=== PATIENT | male | born 2000 | race Hispanic/Latino ===

== ENCOUNTER 2019-03-01 16:19 | Emergency (ER) | payer SELFPAY | END 2019-03-01 17:28 | disposition home or self-care (01) | LOC: EDH 16:19 | DX: T67.5XXA Heat exhaustion, unspecified, initial encounter (principal); R07.89 Other chest pain; F90.9 Attention-deficit hyperactivity disorder, unspecified type; X30.XXXA Exposure to excessive natural heat, initial encounter; Y93.89 Activity, other specified; Y92.89 Other specified places as the place of occurrence of the external cause; Y99.8 Other external cause status | CPT/HCPCS: 71045; 93005 ==

== ENCOUNTER 2020-01-01 19:16 | Emergency (ER) | payer SELFPAY ==
[2020-01-01] MEDS ORDERED: SODIUM CHLORIDE 0.9% 1000ML 2,000 ML IV ONE (20:25)
[2020-01-01 20:28] LABS: BASOPHILS % (AUTO) 0.5 % (0.0-5.0); EOSINOPHILS % (AUTO) 0.6 % (0.0-8.0); HEMATOCRIT 42.6 % (42-54); LYMPHOCYTES % (AUTO) 28.8 % (21.0-51.0); MEAN CORPUSCULAR HGB CONC 35.7 g/dL (32.0-36.0); MEAN CORPUSCULAR VOLUME 86.8 fL (80-100); MONOCYTES % (AUTO) 7.5 % (3.0-13.0); NEUTROPHILS % (AUTO) 62.2 % (40.0-77.0); PLATELET COUNT (AUTO) 229 K/uL (130-400); RED BLOOD CELL COUNT(AUTO) 4.91 MIL/uL (4.50-6.20); RED CELL DISTRIBUTION WIDTH 12.3 % (11.0-15.5); WHITE BLOOD COUNT (AUTO) 9.3 K/uL (4.8-10.8)
[2020-01-01] MEDS ORDERED: INSULIN HUMULIN R 100 UNIT/ML 3ML ONE (20:42)
[2020-01-01 20:57] LABS: APPEARANCE,URINE Clear (CLEAR); BILIRUBIN,URINE Negative (NEGATIVE); COLOR,URINE Yellow (YELLOW); GLUCOSE, URINE (UA) >=1000 mg/dL (NEGATIVE); KETONES,URINE 15 mg/dL (NEGATIVE); LEUKOCYTE ESTERASE ,URINE Negative (NEGATIVE); NITRATE,URINE Negative (NEGATIVE); OCCULT BLOOD,URINE Negative (NEGATIVE); PH,URINE 5.5 (5.0-8.0); PROTEIN,URINE Negative (NEGATIVE); UROBILINOGEN,URINE 0.2 mg/dL (0.2-1.0)
[2020-01-01 21:00] LABS: HEMOGLOBIN A1C 8.4 % (4.0-6.0)
[2020-01-01 21:07] LABS: BACTERIA,URINE None Seen /HPF (None Seen); RBC,URINE 0-1 /HPF (0-1); WBC,URINE 0-1 /HPF (0-1)
[2020-01-01 21:08] LABS: MUCUS,URINE None Seen LPF (None Seen); SQUAMOUS EPITHELIAL CELL,UR 0-2 /HPF (0-2)
[2020-01-01 22:03] LABS: CREATININE 1.1 mg/dL (0.5-1.5); POTASSIUM 3.9 mmol/L (3.5-5.1)
[2020-01-01 22:08] LABS: ALBUMIN 3.5 g/dL (3.5-5.0); BILIRUBIN,TOTAL 0.4 mg/dL (0.2-1.0); TOTAL PROTEIN, SERUM 7.4 g/dL (6.0-8.3)
== END 2020-01-01 22:46 | disposition home or self-care (01) ==
LOC: EDH 19:16
DX: R73.9 Hyperglycemia, unspecified (principal); R11.10 Vomiting, unspecified; F20.9 Schizophrenia, unspecified; F32.9 Major depressive disorder, single episode, unspecified; F90.9 Attention-deficit hyperactivity disorder, unspecified type
CPT/HCPCS: 36415; 80053; 81001; 82010; 82150; 82948 ×2; 83036; 84484; 85025; 93005; 96361; 96374; 99284; J1815; J7030

== ENCOUNTER 2020-03-07 12:57 | Emergency (ER) | payer SELFPAY ==
[2020-03-07] MEDS ORDERED: MAG HYDROX/AL HYDROX/SIMETH ES 30 ML SUSP UDCUP ONE ×2 (13:40→14:32)
[2020-03-07] MEDS ORDERED: LIDOCAINE HCL 2% VISCOUS 15 ML UDCUP ONE ×2 (13:40→14:32)
[2020-03-07 14:29] LABS: BASOPHILS % (AUTO) 0.4 % (0.0-5.0); EOSINOPHILS % (AUTO) 0.3 % (0.0-8.0); HEMATOCRIT 38.8 % (42-54); LYMPHOCYTES % (AUTO) 22.4 % (21.0-51.0); MEAN CORPUSCULAR HEMOGLOBIN 30.5 pg (27.0-33.0); MEAN CORPUSCULAR HGB CONC 32.7 g/dL (32.0-36.0); MEAN CORPUSCULAR VOLUME 93.3 fL (80-100); MONOCYTES % (AUTO) 7.8 % (3.0-13.0); NEUTROPHILS % (AUTO) 66.9 % (40.0-77.0); NUCLEATED RED BLOOD CELLS 0.2 % (0.0-0.19); PLATELET COUNT (AUTO) 362 K/uL (130-400); RED BLOOD CELL COUNT(AUTO) 4.16 MIL/uL (4.50-6.20); RED CELL DISTRIBUTION WIDTH 14.2 % (11.0-15.5); WHITE BLOOD COUNT (AUTO) 12.9 K/uL (4.8-10.8)
[2020-03-07 14:31] LABS: ABG OXYGEN SATURATION 55.3 % (95.0-99.0); HCO3,VENOUS BLOOD GAS 29.1 (21.0-28.0); PCO2,VENOUS BLOOD GAS 50 (35-48); PH,VENOUS BLOOD GAS 7.383 (7.350-7.450)
[2020-03-07 14:40] LABS: CREATININE 0.7 mg/dL (0.5-1.5); POTASSIUM 3.2 mmol/L (3.5-5.1)
== END 2020-03-07 15:50 | disposition home or self-care (01) ==
LOC: EDH 12:57
DX: K29.00 Acute gastritis without bleeding (principal); E11.65 Type 2 diabetes mellitus with hyperglycemia; R10.84 Generalized abdominal pain; F90.9 Attention-deficit hyperactivity disorder, unspecified type; F20.9 Schizophrenia, unspecified; F32.9 Major depressive disorder, single episode, unspecified
CPT/HCPCS: 36415; 36600; 80048; 82803; 85025

== ENCOUNTER 2020-03-08 16:17 | Emergency (ER) | payer SELFPAY ==
[2020-03-08] MEDS ORDERED: SODIUM CHLORIDE 0.9% 1000ML 1,000 ML IV ONE (16:18)
[2020-03-08] MEDS ORDERED: ONDANSETRON HCL 4 MG/2 ML VIAL ONE (16:39)
[2020-03-08] MEDS ORDERED: DICYCLOMINE HCL 10 MG/ML 2ML AMP IM ONE (16:39)
[2020-03-08 16:45] LABS: BASOPHILS % (AUTO) 0.3 % (0.0-5.0); EOSINOPHILS % (AUTO) 0.1 % (0.0-8.0); HEMATOCRIT 41.1 % (42-54); LYMPHOCYTES % (AUTO) 18.8 % (21.0-51.0); MEAN CORPUSCULAR HEMOGLOBIN 30.3 pg (27.0-33.0); MEAN CORPUSCULAR HGB CONC 32.8 g/dL (32.0-36.0); MEAN CORPUSCULAR VOLUME 92.2 fL (80-100); MONOCYTES % (AUTO) 8.8 % (3.0-13.0); NEUTROPHILS % (AUTO) 70.8 % (40.0-77.0); PLATELET COUNT (AUTO) 389 K/uL (130-400); RED BLOOD CELL COUNT(AUTO) 4.46 MIL/uL (4.50-6.20); WHITE BLOOD COUNT (AUTO) 13.9 K/uL (4.8-10.8)
[2020-03-08 16:55] LABS: CREATININE 0.7 mg/dL (0.5-1.5); POTASSIUM 3.7 mmol/L (3.5-5.1)
[2020-03-08] MEDS ORDERED: DiphenhydrAMINE HCL 50 MG/ML VIAL ONE (17:39)
[2020-03-08 17:48] LABS: AMPHET/METH SCREEN,URINE NEGATIVE (NEGATIVE); BARBITURATE SCREEN, URINE NEGATIVE (NEGATIVE); BENZODIAZEPINES SCREEN,URINE NEGATIVE (NEGATIVE); CANNABINOID SCREEN,URINE NEGATIVE (NEGATIVE); COCAINE SCREEN,URINE NEGATIVE (NEGATIVE); OPIATE SCREEN,URINE NEGATIVE (NEGATIVE); PHENCYCLIDINE SCREEN,URINE NEGATIVE (NEGATIVE)
== END 2020-03-08 18:47 | disposition home or self-care (01) ==
LOC: EDH 16:17
DX: K29.70 Gastritis, unspecified, without bleeding (principal); F90.9 Attention-deficit hyperactivity disorder, unspecified type; F32.9 Major depressive disorder, single episode, unspecified; F20.9 Schizophrenia, unspecified
CPT/HCPCS: 36415; 80048; 80305; 82150; 82948 ×2; 83690; 85025; 96361; 96372; 96374; 96375; 99284; J0500; J1200; J2405; J7030; 96360

== ENCOUNTER 2021-11-08 06:33 | Inpatient (IN) | payer OTHER ==
[2021-11-08] VITALS (16 sets, daily range): BP systolic 94–118; BP diastolic 43–63
[~2021-11-08] VITALS: Ht 175.3 cm; Wt 83.9 kg
[2021-11-08 06:48] LABS: BASE EXCESS,VENOUS BLOOD GAS -6.9 (-2.0-3.0); HCO3,VENOUS BLOOD GAS 18.6 (21.0-28.0); PCO2,VENOUS BLOOD GAS 38 (35-48); PH,VENOUS BLOOD GAS 7.309 (7.350-7.450)
[2021-11-08 06:58] LABS: APPEARANCE,URINE CLEAR (CLEAR); BILIRUBIN,URINE NEGATIVE (NEGATIVE); COLOR,URINE YELLOW (YELLOW); GLUCOSE, URINE (UA) >=1000 mg/dL (NEGATIVE); KETONES,URINE 40 mg/dL (NEGATIVE); LEUKOCYTE ESTERASE ,URINE TRACE (NEGATIVE); NITRATE,URINE NEGATIVE (NEGATIVE); OCCULT BLOOD,URINE TRACE-INTACT (NEGATIVE); PROTEIN,URINE TRACE mg/dL (NEGATIVE); UROBILINOGEN,URINE 0.2 mg/dL (0.2-1.0)
[2021-11-08] MEDS ORDERED: 0.9%NACL 1000ML 1,000 ML IV SCH ×3 (07:00→09:00)
[2021-11-08] MEDS ORDERED: MORPHINE 2 MG SYG IVP SCH (07:00)
[2021-11-08] MEDS ORDERED: METOCLOPRAMIDE 10 MG/2 ML VIAL IVP SCH (07:00)
[2021-11-08 07:07] LABS: ALBUMIN 3.8 g/dL (3.5-5.0); POTASSIUM 4.4 mmol/L (3.5-5.1)
[2021-11-08 07:09] LABS: BILIRUBIN,TOTAL 0.8 mg/dL (0.2-1.0)
[2021-11-08 07:16] LABS: BASOPHILS % (AUTO) 0.4 % (0.0-5.0); EOSINOPHILS % (AUTO) 0.2 % (0.0-8.0); HEMATOCRIT 49.9 % (42-54); LYMPHOCYTES % (AUTO) 9.6 % (21.0-51.0); MEAN CORPUSCULAR HEMOGLOBIN 30.5 pg (27.0-33.0); MEAN CORPUSCULAR HGB CONC 34.9 g/dL (32.0-36.0); MEAN CORPUSCULAR VOLUME 87.5 fL (79-99); MONOCYTES % (AUTO) 4.2 % (3.0-13.0); NEUTROPHILS % (AUTO) 85.2 % (40.0-77.0); PLATELET COUNT (AUTO) 203 K/uL (130-400); RED CELL DISTRIBUTION WIDTH 12.1 % (11.0-15.5); WHITE BLOOD COUNT (AUTO) 13.4 K/uL (4.8-10.8)
[2021-11-08 07:22] LABS: MAGNESIUM 1.7 mg/dL (1.80-2.40)
[2021-11-08 07:50] LABS: AMPHET/METH SCREEN,URINE NEGATIVE (NEGATIVE); BARBITURATE SCREEN, URINE NEGATIVE (NEGATIVE); BENZODIAZEPINES SCREEN,URINE NEGATIVE (NEGATIVE); CANNABINOID SCREEN,URINE NEGATIVE (NEGATIVE); COCAINE SCREEN,URINE NEGATIVE (NEGATIVE); OPIATE SCREEN,URINE NEGATIVE (NEGATIVE); PHENCYCLIDINE SCREEN,URINE NEGATIVE (NEGATIVE)
[2021-11-08] MEDS ORDERED: INSULIN HUMULIN R 100 UNIT/ML 3ML IV SCH (08:00)
[2021-11-08] MEDS ORDERED: INSULIN REGULAR, HUMAN 3ML 100 UNIT in 0.9%NACL 100ML 99 ML IV PRN ×2 (08:00)
[2021-11-08 08:01] LABS: BACTERIA,URINE Few /HPF (None Seen); RBC,URINE 0-1 /HPF (0-1); WBC,URINE 0-1 /HPF (0-1)
[2021-11-08] MEDS ORDERED: MAGNESIUM 2GM PREMIX 50ML 50 ML IV ONE (08:03)
[2021-11-08] MEDS: MAGNESIUM 2GM PREMIX 50ML 50 ML IV PRN (08:23)
[2021-11-08] MEDS ORDERED: ONDANSETRON 4MG INJ ONE (08:40)
[2021-11-08] MEDS ORDERED: ONDANSETRON 4MG INJ IVP PRN (09:00)
[2021-11-08] MEDS ORDERED: MAGNESIUM 2GM PREMIX 50ML 50 ML IV PRN (09:00)
[2021-11-08] MEDS ORDERED: ONDANSETRON 4MG INJ IVP SCH (09:00)
[2021-11-08] MEDS ORDERED: ACETAMINOPHEN 325 MG TAB PO PRN (09:00)
[2021-11-08] MEDS: 0.9%NACL 1000ML 1,000 ML IV SCH ×3 (09:20→19:16)
[2021-11-08] MEDS: CEFTRIAXONE 1G VIAL IVP SCH (09:58)
[2021-11-08] MEDS: ZOSYN 3.375GM +NS 50ML IV SCH ×2 (12:51→20:00)
[2021-11-08 13:09] LABS: CREATININE 0.8 mg/dL (0.5-1.5); POTASSIUM 4.3 mmol/L (3.5-5.1)
[2021-11-08 19:00] LABS: CREATININE 0.9 mg/dL (0.5-1.5)
[2021-11-08] MEDS: DEXTROSE 5 %-0.45 % NACL 1,000 ML IV PRN (20:29)
[2021-11-09] VITALS (36 sets, daily range): BP systolic 95–118; BP diastolic 38–88
[2021-11-09 01:49] LABS: CREATININE 0.9 mg/dL (0.5-1.5); POTASSIUM 3.1 mmol/L (3.5-5.1)
[2021-11-09] MEDS: MAGNESIUM 2GM PREMIX 50ML 50 ML IV PRN (02:12)
[2021-11-09] MEDS: POTASSIUM CHLORIDE 10MEQ/100ML 100 ML IV PRN ×2 (02:27→03:36)
[2021-11-09] MEDS: 0.9%NACL 1000ML 1,000 ML IV SCH ×3 (04:05→20:00)
[2021-11-09] MEDS: ZOSYN 3.375GM +NS 50ML IV SCH ×3 (04:15→20:44)
[2021-11-09 05:34] LABS: BASOPHILS % (AUTO) 0.4 % (0.0-5.0); EOSINOPHILS % (AUTO) 0.4 % (0.0-8.0); HEMATOCRIT 40.9 % (42-54); LYMPHOCYTES % (AUTO) 20.5 % (21.0-51.0); MEAN CORPUSCULAR HGB CONC 33.3 g/dL (32.0-36.0); MEAN CORPUSCULAR VOLUME 90.1 fL (79-99); MONOCYTES % (AUTO) 7.4 % (3.0-13.0); NEUTROPHILS % (AUTO) 70.9 % (40.0-77.0); PLATELET COUNT (AUTO) 139 K/uL (130-400); RED BLOOD CELL COUNT(AUTO) 4.54 MIL/uL (4.50-6.20); RED CELL DISTRIBUTION WIDTH 12.7 % (11.0-15.5); WHITE BLOOD COUNT (AUTO) 4.8 K/uL (4.8-10.8)
[2021-11-09 05:47] LABS: CREATININE 0.6 mg/dL (0.5-1.5); MAGNESIUM 2.1 mg/dL (1.80-2.40); POTASSIUM 3.5 mmol/L (3.5-5.1)
[2021-11-09 05:48] LABS: HEMOGLOBIN A1C 13.4 % (4.0-6.0)
[2021-11-09] MEDS ORDERED: POTASSIUM CHLORIDE 20 MEQ/100 ML BAG IV SCH (08:30)
[2021-11-09] MEDS ORDERED: INSULIN GLARGINE 100 UNITS/ML 10 ML VIAL SQ SCH (08:30)
[2021-11-09 09:00] LABS: CREATININE 1.1 mg/dL (0.5-1.5); MAGNESIUM 1.4 mg/dL (1.80-2.40)
[2021-11-09] MEDS: LISINOPRIL 10 MG TABLET PO SCH (09:00)
[2021-11-09] MEDS ORDERED: LIDOCAINE HCL-MPF 1% 2ML VIAL IV PRN (09:30)
[2021-11-09] MEDS ORDERED: KCL 20 MEQ ERTAB PO PRN (09:30)
[2021-11-09] MEDS ORDERED: MAGNESIUM 2GM PREMIX 50ML 50 ML IV PRN (09:30)
[2021-11-09] MEDS ORDERED: POTASSIUM CHLORIDE 20MEQ/100ML 100 ML IV PRN (09:30)
[2021-11-09] MEDS: CEFTRIAXONE 1G VIAL IVP SCH (09:38)
[2021-11-09] MEDS: POTASSIUM CHLORIDE 10% ELIXIR 20 MEQ/15 ML UDCUP PO PRN ×2 (09:39→11:52)
[2021-11-09] MEDS: DEXTROSE 5 %-0.45 % NACL 1,000 ML IV PRN (10:01)
[2021-11-09 11:05] LABS: POTASSIUM 3.4 mmol/L (3.5-5.1)
[2021-11-09] MEDS: INSULIN HUMULIN R 100 UNIT/ML 3ML SQ SCH ×5 (11:25→20:46)
[2021-11-09 17:45] LABS: POTASSIUM 4.2 mmol/L (3.5-5.1)
[2021-11-10 04:00] VITALS: BP 118/64
[2021-11-10 04:40] LABS: BASOPHILS % (AUTO) 0.5 % (0.0-5.0); EOSINOPHILS % (AUTO) 2.1 % (0.0-8.0); HEMATOCRIT 40.5 % (42-54); LYMPHOCYTES % (AUTO) 41.6 % (21.0-51.0); MEAN CORPUSCULAR HGB CONC 33.1 g/dL (32.0-36.0); MEAN CORPUSCULAR VOLUME 90.6 fL (79-99); MONOCYTES % (AUTO) 14.5 % (3.0-13.0); PLATELET COUNT (AUTO) 147 K/uL (130-400); RED BLOOD CELL COUNT(AUTO) 4.47 MIL/uL (4.50-6.20); RED CELL DISTRIBUTION WIDTH 12.6 % (11.0-15.5); WHITE BLOOD COUNT (AUTO) 3.9 K/uL (4.8-10.8)
[2021-11-10 04:49] LABS: ALBUMIN 2.5 g/dL (3.5-5.0); BILIRUBIN,TOTAL 0.4 mg/dL (0.2-1.0); CREATININE 0.7 mg/dL (0.5-1.5); MAGNESIUM 1.6 mg/dL (1.80-2.40); POTASSIUM 3.6 mmol/L (3.5-5.1); TOTAL PROTEIN, SERUM 5.7 g/dL (6.0-8.3)
[2021-11-10] MEDS: ZOSYN 3.375GM +NS 50ML IV SCH ×2 (05:03→13:26)
[2021-11-10] MEDS: MAGNESIUM 2GM PREMIX 50ML 50 ML IV PRN (05:04)
[2021-11-10] MEDS: 0.9%NACL 1000ML 1,000 ML IV SCH ×2 (05:14→11:00)
[2021-11-10] MEDS: INSULIN HUMULIN R 100 UNIT/ML 3ML SQ SCH ×3 (06:36→11:38)
[2021-11-10 08:00] VITALS: BP 104/61
[2021-11-10] MEDS ORDERED: MAGNESIUM 2GM PREMIX 50ML 50 ML IV PRN (08:00)
[2021-11-10] MEDS ORDERED: INSULIN GLARGINE 100 UNITS/ML 10 ML VIAL SQ SCH (08:00)
[2021-11-10] MEDS: LISINOPRIL 10 MG TABLET PO SCH (08:04)
[2021-11-10] MEDS: CEFTRIAXONE 1G VIAL IVP SCH (08:05)
[2021-11-10] MEDS ORDERED: INSU10VI3 SQ (11:21)
[2021-11-10] MEDS ORDERED: [UNRECOGNIZED DRUG - CODE] MC (11:21)
[2021-11-10] MEDS ORDERED: METF-444 PO (11:21)
[2021-11-10] MEDS ORDERED: INSULIN HUMULIN R 100 UNIT/ML 3ML SQ SCH (11:30)
[2021-11-10 11:52] VITALS: BP 114/69
== END 2021-11-10 13:00 | disposition home or self-care (01) | DRG 638 ==
LOC: EDH 06:33 → EDHIP 06:34 → 2CH 13:00 → 3DH 11-10 02:07
PROVIDERS: ADMIT Internal Medicine; ATTEND Internal Medicine
DX: E11.10 Type 2 diabetes mellitus with ketoacidosis without coma (principal); N39.0 Urinary tract infection, site not specified; E87.0 Hyperosmolality and hypernatremia; R45.851 Suicidal ideations; E87.6 Hypokalemia; E83.42 Hypomagnesemia; E78.5 Hyperlipidemia, unspecified; I10 Essential (primary) hypertension; Z79.4 Long term (current) use of insulin; Z91.120 Patient's intentional underdosing of medication regimen due to financial hardship; Z91.14 Patient's other noncompliance with medication regimen; Z83.3 Family history of diabetes mellitus
CPT/HCPCS: 36415; 36600; 71045; 74176; 80048; 80053; 80061; 80305; 81001; 82010; 82435; 82803; 82947; 82948; 83036; 83605; 83690; 83735; 84132; 84295; 85025; 99291; G0378; J0696; J1815; J2405; J2543; J2765; J3475; J3480; J7030; J7042

== ENCOUNTER 2022-06-06 22:25 | Emergency (ER) | payer OTHER ==
[~2022-06-06] VITALS: Ht 180.3 cm; Wt 90.7 kg
[~2022-06-06 22:25] MED LIST: INSU10VI3 SQ; METF-444 PO; [UNRECOGNIZED DRUG - CODE] MC
[2022-06-06 22:50] LABS: BASOPHILS % (AUTO) 0.7 % (0.0-5.0); EOSINOPHILS % (AUTO) 0.3 % (0.0-8.0); HEMATOCRIT 45.6 % (42-54); LYMPHOCYTES % (AUTO) 36.7 % (21.0-51.0); MEAN CORPUSCULAR HEMOGLOBIN 30.4 pg (27.0-33.0); MEAN CORPUSCULAR HGB CONC 34.6 g/dL (32.0-36.0); MEAN CORPUSCULAR VOLUME 87.7 fL (79-99); MONOCYTES % (AUTO) 6.5 % (3.0-13.0); NEUTROPHILS % (AUTO) 55.6 % (40.0-77.0); PLATELET COUNT (AUTO) 198 K/uL (130-400); RED CELL DISTRIBUTION WIDTH 11.6 % (11.0-15.5); WHITE BLOOD COUNT (AUTO) 6.1 K/uL (4.8-10.8)
[2022-06-06] MEDS ORDERED: 0.9%NACL 1000ML 1,000 ML IV ONE (23:00)
[2022-06-06] MEDS ORDERED: 0.9%NACL 1000ML 2,000 ML IV ONE (23:00)
[2022-06-06 23:07] LABS: ALBUMIN 3.6 g/dL (3.5-5.0); CREATININE 1.1 mg/dL (0.5-1.5); POTASSIUM 4.7 mmol/L (3.5-5.1); TOTAL PROTEIN, SERUM 7.2 g/dL (6.0-8.3)
[2022-06-06 23:27] LABS: APPEARANCE,URINE CLEAR (CLEAR); BILIRUBIN,URINE NEGATIVE (NEGATIVE); COLOR,URINE COLORLESS (YELLOW); GLUCOSE, URINE (UA) >=1000 mg/dL (NEGATIVE); KETONES,URINE 20 mg/dL (NEGATIVE); LEUKOCYTE ESTERASE ,URINE NEGATIVE Leu/uL (NEGATIVE); NITRATE,URINE NEGATIVE (NEGATIVE); OCCULT BLOOD,URINE NEGATIVE (NEGATIVE); PH,URINE 5.5 (5.0-8.0); PROTEIN,URINE NEGATIVE (NEGATIVE); RBC,URINE 0-1 /HPF (0-1); SQUAMOUS EPITHELIAL CELL,UR RARE /HPF (0-2); UROBILINOGEN,URINE 0.2 mg/dL (0.2-1.0); WBC,URINE 0-1 /HPF (0-1)
[2022-06-07 00:23] VITALS: BP 118/74
== END 2022-06-07 00:31 | disposition home or self-care (01) ==
LOC: EDH 22:25
DX: E11.65 Type 2 diabetes mellitus with hyperglycemia (principal); E86.0 Dehydration; F20.9 Schizophrenia, unspecified; F31.9 Bipolar disorder, unspecified; Z79.84 Long term (current) use of oral hypoglycemic drugs
CPT/HCPCS: 99284; 96360; 80053; 85025; 82948 ×2; 81001; 36415; 93005; J7030

== ENCOUNTER 2023-09-18 17:21 | Emergency (ER) | payer OTHER ==
[~2023-09-18] VITALS: Ht 177.8 cm; Wt 93.9 kg
[2023-09-18 17:32] VITALS: BP 151/102; PULSE 95; RESP 18; O2SAT 99
[2023-09-18 17:57] LABS: BASOPHILS # (AUTO) 0.03 K/uL (0.00-0.20); BASOPHILS % (AUTO) 0.5 % (0.0-5.0); EOSINOPHILS # (AUTO) 0.08 K/uL (0.00-0.70); EOSINOPHILS % (AUTO) 1.3 % (0.0-8.0); HEMATOCRIT 47.9 % (42-54); IMMATURE GRANULOCYTE ABSOLUTE 0.01 K/uL (0-1); LYMPHOCYTES # (AUTO) 2.2 K/uL (1.0-4.8); LYMPHOCYTES % (AUTO) 34.8 % (21.0-51.0); MEAN CORPUSCULAR HEMOGLOBIN 30.8 pg (27.0-33.0); MEAN CORPUSCULAR HGB CONC 35.3 g/dL (32.0-36.0); MEAN CORPUSCULAR VOLUME 87.2 fL (79-99); MONOCYTES # (AUTO) 0.6 K/uL (0.1-1.0); MONOCYTES % (AUTO) 9.7 % (3.0-13.0); NEUTROPHILS # (AUTO) 3.4 K/uL (1.8-7.7); NEUTROPHILS % (AUTO) 53.5 % (40.0-77.0); PLATELET COUNT (AUTO) 219 K/uL (130-400); RED BLOOD CELL COUNT(AUTO) 5.49 MIL/uL (4.50-6.20); WHITE BLOOD COUNT (AUTO) 6.4 K/uL (4.8-10.8)
[2023-09-18 18:15] LABS: ALBUMIN 3.6 g/dL (3.5-5.0); BILIRUBIN,TOTAL 0.5 mg/dL (0.2-1.0); CREATININE 1.2 mg/dL (0.5-1.5); POTASSIUM 4.7 mmol/L (3.5-5.1); TOTAL PROTEIN, SERUM 7.4 g/dL (6.0-8.3)
[2023-09-18] MEDS ORDERED: 0.9%NACL 1000ML 1,000 ML IV STA (19:21)
[2023-09-18] MEDS ORDERED: INSULIN HUMULIN R 100 UNIT/ML 3ML IV ONE (19:30)
== END 2023-09-18 19:30 | disposition left against medical advice (07) ==
LOC: EDH 17:21
DX: E11.9 Type 2 diabetes mellitus without complications (principal); R10.9 Unspecified abdominal pain; R51.9 Headache, unspecified; R07.9 Chest pain, unspecified; Z79.84 Long term (current) use of oral hypoglycemic drugs; Z79.899 Other long term (current) drug therapy; Z98.890 Other specified postprocedural states
CPT/HCPCS: 36415; 71045; 80053; 84484; 85025; 93005

== ENCOUNTER 2023-10-06 20:43 | Emergency (ER) | payer OTHER ==
[~2023-10-06] VITALS: Ht 180.3 cm; Wt 87.1 kg
[2023-10-06 21:14] LABS: RAPID GROUP A STREP negative (NEGATIVE)
[2023-10-06] MEDS: ACETAMINOPHEN 325 MG TAB PO ONE (21:14)
[2023-10-06 21:24] LABS: INFLUENZA TYPE A Negative For Type A (NEGATIVE); INFLUENZA TYPE B Negative For Type B (NEGATIVE)
[2023-10-06 21:26] LABS: SARS-CoV-2, RNA, NAAT NEGATIVE SARS CoV-2 (NEGATIVE)
[2023-10-06] MEDS: 0.9%NACL 1000ML 2,259 ML IV ONE (21:40)
[2023-10-06 21:44] LABS: BASOPHILS # (AUTO) 0.03 K/uL (0.00-0.20); BASOPHILS % (AUTO) 0.5 % (0.0-5.0); EOSINOPHILS # (AUTO) 0.03 K/uL (0.00-0.70); EOSINOPHILS % (AUTO) 0.5 % (0.0-8.0); HEMATOCRIT 49.4 % (42-54); IMMATURE GRANULOCYTE ABSOLUTE 0.02 K/uL (0-1); LYMPHOCYTES % (AUTO) 18.1 % (21.0-51.0); MEAN CORPUSCULAR HEMOGLOBIN 30.4 pg (27.0-33.0); MEAN CORPUSCULAR HGB CONC 35.2 g/dL (32.0-36.0); MEAN CORPUSCULAR VOLUME 86.2 fL (79-99); MONOCYTES # (AUTO) 0.7 K/uL (0.1-1.0); NEUTROPHILS # (AUTO) 3.9 K/uL (1.8-7.7); NEUTROPHILS % (AUTO) 68.5 % (40.0-77.0); PLATELET COUNT (AUTO) 189 K/uL (130-400); RED BLOOD CELL COUNT(AUTO) 5.73 MIL/uL (4.50-6.20); RED CELL DISTRIBUTION WIDTH 11.6 % (11.0-15.5); WHITE BLOOD COUNT (AUTO) 5.7 K/uL (4.8-10.8)
[2023-10-06 21:57] LABS: ABG BASE EXCESS -0.1 mmol/L (-2.0-3.0); ABG HCO3 23.1 mmol/L (21.0-28.0); ABG OXYGEN SATURATION 96.8 % (95.0-99.0); ABG PCO2 34 mmHg (35-48); CARBON MONOXIDE 0.7; DEVICE COMMENT LFT RAD; HHb 3.2; PO2, ARTERIAL BG 83.7 mmHg (83.0-108.0); VENT MODE, BG ROOM AIR (ROOM AIR)
[2023-10-06] MEDS: INSULIN HUMULIN R 100 UNIT/ML 3ML IV ONE ×2 (21:58→23:55)
[2023-10-06 22:05] LABS: ALBUMIN 4.1 g/dL (3.5-5.0); BILIRUBIN,TOTAL 0.8 mg/dL (0.2-1.0); CREATININE 1.1 mg/dL (0.5-1.3); POTASSIUM 4.2 mmol/L (3.5-5.1); TOTAL PROTEIN, SERUM 8.3 g/dL (6.0-8.3)
[2023-10-06] MEDS: 0.9%NACL 1000ML 1,000 ML IV ONE (23:06)
[2023-10-06 23:24] LABS: APPEARANCE,URINE CLEAR (CLEAR); BILIRUBIN,URINE NEGATIVE (NEGATIVE); COLOR,URINE COLORLESS (YELLOW); GLUCOSE, URINE (UA) >=1000 mg/dL (NEGATIVE); KETONES,URINE NEGATIVE (NEGATIVE); LEUKOCYTE ESTERASE ,URINE NEGATIVE Leu/uL (NEGATIVE); NITRATE,URINE NEGATIVE (NEGATIVE); OCCULT BLOOD,URINE NEGATIVE (NEGATIVE); PROTEIN,URINE NEGATIVE (NEGATIVE); UROBILINOGEN,URINE 0.2 mg/dL (0.2-1.0)
[2023-10-06 23:35] LABS: ADD UA MICROSCOPIC YES
[2023-10-06 23:39] LABS: MUCUS,URINE RARE LPF (None Seen); SQUAMOUS EPITHELIAL CELL,UR RARE /HPF (0-2); YEAST,URINE BUDDING RARE /HPF (None Seen)
[2023-10-06 23:54] VITALS: TEMP 98.7
[2023-10-07 00:15] VITALS: BP 123/84; PULSE 90; RESP 18; O2SAT 100
[2023-10-07] MEDS ORDERED: METF-910 PO (00:17)
== END 2023-10-07 00:34 | disposition home or self-care (01) ==
LOC: EDH 20:43
DX: E11.65 Type 2 diabetes mellitus with hyperglycemia (principal); E11.9 Type 2 diabetes mellitus without complications; F41.9 Anxiety disorder, unspecified; F31.9 Bipolar disorder, unspecified; Z79.899 Other long term (current) drug therapy; Z20.822 Contact with and (suspected) exposure to COVID-19; Z98.890 Other specified postprocedural states
CPT/HCPCS: 99285; 96361; 96374; 71045; 87635; 82947; 84484; 80053; 82803; 83690; 85025; 87880; 87804 ×2; 82010; 81001; 36415; 96376; 93005; 36600; 82948 ×3; 85018; 82435; 84132; 84295; 83605 ×3; J1815 ×2; 96375

== ENCOUNTER 2024-01-04 19:05 | Emergency (ER) | payer OTHER ==
[~2024-01-04] VITALS: Ht 177.8 cm; Wt 89.8 kg
[~2024-01-04 19:05] MED LIST changes: +METF-910 PO
[2024-01-04 20:16] LABS: BASOPHILS # (AUTO) 0.04 K/uL (0.00-0.20); BASOPHILS % (AUTO) 0.3 % (0.0-5.0); HEMATOCRIT 46.8 % (42-54); IMMATURE GRANULOCYTE ABSOLUTE 0.05 K/uL (0-1); LYMPHOCYTES # (AUTO) 1.7 K/uL (1.0-4.8); LYMPHOCYTES % (AUTO) 11.1 % (21.0-51.0); MEAN CORPUSCULAR HEMOGLOBIN 29.7 pg (27.0-33.0); MEAN CORPUSCULAR HGB CONC 34.2 g/dL (32.0-36.0); MONOCYTES % (AUTO) 6.4 % (3.0-13.0); NEUTROPHILS # (AUTO) 12.9 K/uL (1.8-7.7); NEUTROPHILS % (AUTO) 81.9 % (40.0-77.0); PLATELET COUNT (AUTO) 255 K/uL (130-400); RED BLOOD CELL COUNT(AUTO) 5.38 MIL/uL (4.50-6.20); RED CELL DISTRIBUTION WIDTH 12.1 % (11.0-15.5); WHITE BLOOD COUNT (AUTO) 15.7 K/uL (4.8-10.8)
[2024-01-04 20:31] LABS: CREATININE 0.9 mg/dL (0.5-1.3); POTASSIUM 4.7 mmol/L (3.5-5.1)
[2024-01-04 20:40] LABS: HEMOGLOBIN A1C 9.1 % (4.0-6.0)
[2024-01-04 20:41] LABS: ALBUMIN 3.9 g/dL (3.5-5.0); BILIRUBIN,TOTAL 0.7 mg/dL (0.2-1.0); TOTAL PROTEIN, SERUM 7.7 g/dL (6.0-8.3)
[2024-01-04 21:31] VITALS: TEMP 102.1
[2024-01-04] MEDS: 0.9%NACL 1000ML 1,000 ML IV SCH (21:31)
[2024-01-04] MEDS: ACETAMINOPHEN 500 MG TABLET PO ONE (21:31)
[2024-01-04] MEDS: 0.9%NACL 1000ML 1,000 ML IV ONE (21:32)
[2024-01-04] MEDS: ACETAMINOPHEN 500 MG TABLET ONE (21:32)
[2024-01-04 22:10] LABS: RAPID GROUP A STREP negative (NEGATIVE)
[2024-01-04 22:13] LABS: SARS-CoV-2, RNA, NAAT NEGATIVE SARS CoV-2 (NEGATIVE)
[2024-01-04 22:18] LABS: INFLUENZA TYPE A Negative For Type A (NEGATIVE); INFLUENZA TYPE B Negative For Type B (NEGATIVE)
[2024-01-04 22:19] LABS: APPEARANCE,URINE CLEAR (CLEAR); BILIRUBIN,URINE NEGATIVE (NEGATIVE); COLOR,URINE LIGHT-YELLOW (YELLOW); GLUCOSE, URINE (UA) NEGATIVE (NEGATIVE); KETONES,URINE NEGATIVE (NEGATIVE); LEUKOCYTE ESTERASE ,URINE NEGATIVE Leu/uL (NEGATIVE); NITRATE,URINE NEGATIVE (NEGATIVE); OCCULT BLOOD,URINE NEGATIVE (NEGATIVE); PROTEIN,URINE 10 mg/dL (NEGATIVE); UROBILINOGEN,URINE 0.2 mg/dL (0.2-1.0)
[2024-01-04 22:20] LABS: ADD UA MICROSCOPIC YES
[2024-01-04 22:28] LABS: MUCUS,URINE RARE LPF (None Seen); RBC,URINE 0-1 /HPF (0-1); SQUAMOUS EPITHELIAL CELL,UR RARE /HPF (0-2)
[2024-01-04 23:03] VITALS: BP 121/62; PULSE 100; RESP 18; O2SAT 100
== END 2024-01-04 23:05 | disposition home or self-care (01) ==
LOC: EDH 19:05
DX: R07.89 Other chest pain (principal); E86.0 Dehydration; E11.9 Type 2 diabetes mellitus without complications; F41.9 Anxiety disorder, unspecified; F32.A Depression, unspecified; Z20.822 Contact with and (suspected) exposure to COVID-19; Z79.84 Long term (current) use of oral hypoglycemic drugs; Z79.899 Other long term (current) drug therapy; Z98.890 Other specified postprocedural states
CPT/HCPCS: 99285; 96360; 71045; 87635; 83036; 84484; 80053; 85025; 87880; 87804 ×2; 81001; 36415; 93005; J7030

== ENCOUNTER 2024-07-25 11:30 | Emergency (ER) | payer SELFPAY ==
[~2024-07-25] VITALS: Ht 177.8 cm; Wt 111.1 kg
[2024-07-25 11:31] VITALS: TEMP 98.3
--- NOTE | 2024-07-25 11:57 | ERN ---
ED Note History of Present Illness Stated Complaint: NAUSEA VOMITING Chief Complaint: Nausea,Vomiting,Diarrhea Time Seen by MD: 11:44 Time Seen by Midlevel: 11:48 Dictation: 24-year-old male presents to the ED for evaluation of nausea and vomiting onset 7:00 a.m. this morning. Patient reports abdominal pain and dizziness, but denies any other associated symptoms at this time. Medical history of DM type 2, HTN and HLD. Allergies: Coded Allergies: No Known Allergies (Unverified Allergy, Unknown, 03/01/19) No Known Drug Allergies (Unverified Allergy, Unknown, 01/01/20) Home Meds Active Scripts Metformin HCl (Metformin HCl ER) 500 Mg Tab.er.24h, 500 MG PO BID for 30 Days, #60 TAB Prov:ANGELES HEMPHILL 10/07/23 Blood-Glucose Meter (Accu-Chek Guide Me Glucose Mtr) 1 Each Each, EACH MC, #1 Prov:ESTHER ESTEVEZ 11/10/21 Insuln Asp Prt/Insulin Aspart (Novolog Mix 70-30 Vial) 100 Unit/1 Ml Vial, 30 UN ITS SQ ACBKFST, #1 VIAL 0 Refills Prov:ESTHER ESTEVEZPCNP 11/10/21 Metformin HCl (Metformin HCl) 500 Mg Tablet, 500 MG PO BID, #60 TAB 0 Refills Prov:ESTHER ESTEVEZPCNP 11/10/21 Past Medical History Past Medical History: Diabetes-Type II, High Cholesterol, Hypertension Additional Past Medical Hx: ADHD Surgical History: None Social History: ETOH, Negative, Lives with family Review of System Dictation Constitutional: Negative for fever,chills, and weight loss Eyes: Negative for injury, pain,redness, and discharge ENT: Negative for injury,pain or swelling Cardiovascular: Negative for chest pain, palpitations, and edema Respiratory: Negative for shortness of breath, cough, and wheezing, Abdomen/GI: Positive for nausea, vomiting abdominal pain,Negative for diarrhea and constipation Back: Negative for injury and pain : Negative for injury, bleeding and discharge MS/Extremity: Negative for injury and deformity Skin: Negative for rash, and discoloration Neuro: Positive for dizziness Negative for headache, weakness, numbness, tingling, and seizure Psych: Negative for suicide ideation, homicidal ideation, and hallucinations Review of Systems: was completed Initial Vital Sign VS Vital Signs Date Time Temp Pulse Resp B/P (MAP) Pulse Ox O2 Delivery O2 Flow Rate FiO2 07/25/24 11:31 98.2 102 20 127/79 99 Room Air 0 Physical Exam Dictation General: awake, alert, NAD Head/Face: Normocephalic, atraumatic Eyes: PERRL, EOMI, vision at baseline ENT: oral cavity clear, TMs clear, no signs of infection Neck: Trachea midline, supple, no nuchal rigidity Cardiovascular: RRR, normal S1/S2, No MRGs, no JVD Respiratory: CTAB, no respiratory distress, No rales or wheezes Abdomen: Soft, non-tender, non-distended, normal bowel sounds, no guarding or rebound. Skin: Warm, dry, normal turgor, no rash MS/Extremity: Pulses equal, no cyanosis, neurovascular intact, FROM Neuro: COAx4, GCS 15, strength 5/5, CN 2-12 intact, normal cerebellar exam, normal gait, Psych: Normal behavior, mood, and affect normal Results (Laboratory/Radiology) Laboratory/Radiology Laboratory Tests Test 07/25/24 12:10 07/25/24 13:00 07/25/24 13:30 07/25/24 14:22 White Blood Count 10.2 K/uL (4.8-10.8) Red Blood Count 5.43 MIL/uL (4.50-6.20) Hemoglobin 16.5 g/dL (14.0-18.0) Hematocrit 47.9 % (42-54) Mean Corpuscular Volume 88.2 fL (79-99) Mean Corpuscular Hemoglobin 30.4 pg (27.0-33.0) Mean Corpuscular Hemoglobin Concent 34.4 g/dL (32.0-36.0) Red Cell Distribution Width 12.3 % (11.0-15.5) Platelet Count 198 K/uL (130-400) Mean Platelet Volume 12.1 fL (7.5-10.5) H Immature Granulocyte % (Auto) 0.3 % (0-1) Neutrophils (%) (Auto) 90.6 % (40.0-77.0) H Lymphocytes (%) (Auto) 4.8 % (21.0-51.0) L Monocytes (%) (Auto) 3.6 % (3.0-13.0) Eosinophils (%) (Auto) 0.4 % (0.0-8.0) Basophils (%) (Auto) 0.3 % (0.0-5.0) Neutrophils # (Auto) 9.2 K/uL (1.8-7.7) H Lymphocytes # (Auto) 0.5 K/uL (1.0-4.8) L Monocytes # (Auto) 0.4 K/uL (0.1-1.0) Eosinophils # (Auto) 0.04 K/uL (0.00-0.70) Basophils # (Auto) 0.03 K/uL (0.00-0.20) Absolute Immature Granulocyte (auto 0.03 K/uL (0-1) Nucleated Red Blood Cells 0.0 % (0.0-0.19) White Cell Morphology Comment See comments Sodium Level 135 mmol/L (136-145) L Potassium Level 6.6 mmol/L (3.5-5.1) *H 5.6 mmol/L (3.5-5.1) H 4.0 mmol/L (3.5-5.1) Chloride Level 100 mmol/L (101-111) L Carbon Dioxide Level 28 mmol/L (21-32) Blood Urea Nitrogen 14 mg/dL (7-18) Creatinine 0.9 mg/dL (0.5-1.3) Glomerular Filtration Rate Calc 122 mL/min (>90) Random Glucose 291 mg/dL (70-105) H Total Calcium 8.9 mg/dL (8.5-10.1) Total Bilirubin 0.8 mg/dL (0.2-1.0) Aspartate Amino Transf (AST/SGOT) 155 U/L (10-37) H Alanine Aminotransferase (ALT/SGPT) 179 U/L (12-78) H Alkaline Phosphatase 80 U/L (50-136) Total Protein 7.5 g/dL (6.0-8.3) Albumin 3.6 g/dL (3.5-5.0) Urine Color LIGHT-YELLOW (YELLOW) Urine Appearance CLEAR (CLEAR) Urine pH 7.0 (5.0-8.0) Urine Specific [place] 1.032 (1.001-1.031) Urine Protein NEGATIVE mg/dL (NEGATIVE) Urine Glucose (UA) >=1000 mg/dL (NEGATIVE) H Urine Ketones 20 mg/dL (NEGATIVE) H Urine Occult Blood NEGATIVE (NEGATIVE) Urine Nitrate NEGATIVE (NEGATIVE) Urine Bilirubin NEGATIVE mg/dL (NEGATIVE) Urine Urobilinogen 0.2 mg/dL (0.2-1.0) Urine Leukocyte Esterase NEGATIVE Renee/uL Urine RBC 0-1 /HPF (0-1) Urine WBC 0-1 /HPF (0-1) Urine Bacteria None /HPF (None Seen) Urine Opiates Screen NEGATIVE (NEGATIVE) Urine Barbiturates Screen NEGATIVE (NEGATIVE) Urine Phencyclidine Screen NEGATIVE (NEGATIVE) Urine Amphetamines Screen NEGATIVE (NEGATIVE) Urine Benzodiazepines Screen NEGATIVE (NEGATIVE) Urine Cocaine Screen NEGATIVE (NEGATIVE) Urine Marijuana (THC) Screen NEGATIVE (NEGATIVE) Lipase 25 U/L (16-77) Whole Blood Glucose 244 MG/DL (70-110) H Labs Reviewed?: Yes ED Course ED Course Orders Procedure Category Date Status Time Cbc With Differential LAB 07/25/24 Complete 11:57 Comprehensive LAB 07/25/24 Complete Metabolic Panel 11:57 Drug Screen Urine LAB 07/25/24 Complete 11:57 Urinalysis Profile LAB 07/25/24 Complete 11:57 0.9%Nacl 1000ml (Ns PHA 07/25/24 Complete 1000ml) 12:02 Metoclopramide 10 PHA 07/25/24 Complete Mg/2 Ml Vial (Reglan 1 12:30 Potassium LAB 07/25/24 Complete 12:50 Potassium LAB 07/25/24 Complete 13:30 0.9%Nacl 1000ml (Ns PHA 07/25/24 In Process 1000ml) 13:33 Lipase LAB 07/25/24 Complete 14:00 Current Medications Medications (Trade) Dose Ordered Sig/Neftali Route PRN Reason Start Time Stop Time Status Last Admin Dose Admin Metoclopramide HCl (regLAN 10MG IV) 10 mg ONCE ONCE IVP 07/25/24 12:30 07/25/24 12:31 DC 07/25/24 12:18 Sodium Chloride 1,000 ml @ 1,000 mls/hr Q1H STAT IV 07/25/24 12:02 07/25/24 13:01 DC 07/25/24 12:19 Sodium Chloride 1,000 ml @ 1,000 mls/hr Q1H STAT IV 07/25/24 13:33 07/25/24 14:32 07/25/24 13:48 Vital Signs Date Time Temp Pulse Resp B/P (MAP) Pulse Ox O2 Delivery O2 Flow Rate FiO2 07/25/24 11:31 98.2 102 20 127/79 99 Room Air 0 Medical Decision Making MDM MDM: 24-year-old male presents to the ED for evaluation of nausea and vomiting onset 7:00 a.m. this morning. Patient reports abdominal pain and dizziness, but denies any other associated symptoms at this time. Medical history of DM type 2, HTN and HLD.CBC shows no leukocytosis, no anemia, no thrombocytopenia. Chemistry shows hyponatremia, potassium was 6.6, blood sample was repeated with no intervention and now it is four. Normal kidney function. In his a glucose of 291, fluids given in the ER, repeat glucose 244. PATIENT STATES HE IS NONCOMPLIANT WITH THE HIS DIABETIC MEDICATION BECAUSE HE IS TIRED OF TAKING THEM. Carbon dioxide is 28. Mild transaminitis, with normal T bili and normal lipase. After fluids and Reglan patient states he feels much better. Educated patient she needs to take his medications for his diabetes as prescribed. Educated start a bland diet for the next couple of days and increase as tolerated. Patient verbalized understanding, answered all questions. Differential diagnosis: Vomiting, abdominal pain, gastroenteritis Previous outside records reviewed: Old ER visits. Need for hospitalization: Patient does not meet criteria for hospitalization. Need for emergency major/minor surgery: No Patient's prior external medical records from other ER visits were reviewed by me as indicated. Prior testing and results from previous visits were reviewed. Prior tests were taken into account with medical decision making and resource utilization, independent historian/historians were used to obtain complete medical history. I independently interpreted the test that were performed, results were reviewed by me and considered findings on radiology if ordered. Medical management and examination interpretation discussions were had by me with other qualified healthcare professionals as indicated for the patient's care. DX & DISP Disposition: Discharge Departure Impression: Primary Impression: Dehydration Additional Impressions: Hyperglycemia due to diabetes mellitus, Nausea & vomiting, Noncompliance with diabetes treatment, Gastroenteritis Condition: Stable Scripts Ondansetron (Ondansetron Odt) 4 Mg Tab.rapdis 4 MG PO Q6HPRN PRN for nausea for 3 Days, #12 TAB 0 Refills Prov: JOSY HUDDLESTON CL[employer]ICAL INFORMATICS SPECIALIST 1/6/25 Additional Instructions: PLEASE TAKE YOUR DIABETIC MEDICATION PRESCRIBED. START A BLAND DIET, INCREASE DIET TOLERATED. AVOID ANY SUGARY, SPICY, FRIED FOOD. RETURN TO THE ER IF UNABLE TO KEEP ANY FOOD OR FLUIDS DOWN EVEN IF YOU TAKE YOUR NAUSEA MEDICATION. FOLLOW UP WITH YOUR PCP IN 1-2 DAYS. Referrals: DUNIA ROCHA (PCP) Time of Disposition: 14:30 I have reviewed, & agreed with my scribe's, documentation. (Entered by Cassidy Franco, acting as a scribe for REMIGIO Huddleston) I have reviewed the case, and I agree with, Diagnosis and Plan I personally scribed for JOSY HUDDLESTON NP ([email or web address]) on 07/25/24 at 11:57. Electronically submitted by Cassidy Franco ([email or web address]). JOSY HUDDLESTON NP Jul 25, 2024 11:57
[2024-07-25 12:18] LABS: BASOPHILS # (AUTO) 0.03 K/uL (0.00-0.20); BASOPHILS % (AUTO) 0.3 % (0.0-5.0); EOSINOPHILS # (AUTO) 0.04 K/uL (0.00-0.70); EOSINOPHILS % (AUTO) 0.4 % (0.0-8.0); HEMATOCRIT 47.9 % (42-54); IMMATURE GRANULOCYTE ABSOLUTE 0.03 K/uL (0-1); LYMPHOCYTES # (AUTO) 0.5 K/uL (1.0-4.8); LYMPHOCYTES % (AUTO) 4.8 % (21.0-51.0); MEAN CORPUSCULAR HEMOGLOBIN 30.4 pg (27.0-33.0); MEAN CORPUSCULAR HGB CONC 34.4 g/dL (32.0-36.0); MEAN CORPUSCULAR VOLUME 88.2 fL (79-99); MONOCYTES # (AUTO) 0.4 K/uL (0.1-1.0); MONOCYTES % (AUTO) 3.6 % (3.0-13.0); NEUTROPHILS # (AUTO) 9.2 K/uL (1.8-7.7); NEUTROPHILS % (AUTO) 90.6 % (40.0-77.0); PLATELET COUNT (AUTO) 198 K/uL (130-400); RED BLOOD CELL COUNT(AUTO) 5.43 MIL/uL (4.50-6.20); RED CELL DISTRIBUTION WIDTH 12.3 % (11.0-15.5); WHITE BLOOD COUNT (AUTO) 10.2 K/uL (4.8-10.8)
[2024-07-25] MEDS: metoCLOPRAmide 10 MG/2 ML VIAL IVP ONE (12:18)
[2024-07-25] MEDS: 0.9%NACL 1000ML 1,000 ML IV STA ×2 (12:19→13:48)
[2024-07-25 12:44] LABS: ALBUMIN 3.6 g/dL (3.5-5.0); BILIRUBIN,TOTAL 0.8 mg/dL (0.2-1.0); CREATININE 0.9 mg/dL (0.5-1.3); TOTAL PROTEIN, SERUM 7.5 g/dL (6.0-8.3)
[2024-07-25 12:49] LABS: POTASSIUM 6.6 mmol/L (3.5-5.1)
[2024-07-25 13:33] LABS: AMPHET/METH SCREEN,URINE NEGATIVE (NEGATIVE); BARBITURATE SCREEN, URINE NEGATIVE (NEGATIVE); BENZODIAZEPINES SCREEN,URINE NEGATIVE (NEGATIVE); CANNABINOID SCREEN,URINE NEGATIVE (NEGATIVE); COCAINE SCREEN,URINE NEGATIVE (NEGATIVE); OPIATE SCREEN,URINE NEGATIVE (NEGATIVE); PHENCYCLIDINE SCREEN,URINE NEGATIVE (NEGATIVE)
[2024-07-25 14:00] LABS: APPEARANCE,URINE CLEAR (CLEAR); BILIRUBIN,URINE NEGATIVE (NEGATIVE); COLOR,URINE LIGHT-YELLOW (YELLOW); GLUCOSE, URINE (UA) >=1000 mg/dL (NEGATIVE); KETONES,URINE 20 mg/dL (NEGATIVE); LEUKOCYTE ESTERASE ,URINE NEGATIVE Leu/uL (NEGATIVE); NITRATE,URINE NEGATIVE (NEGATIVE); OCCULT BLOOD,URINE NEGATIVE (NEGATIVE); PROTEIN,URINE NEGATIVE (NEGATIVE); UROBILINOGEN,URINE 0.2 mg/dL (0.2-1.0)
[2024-07-25 14:01] LABS: ADD UA MICROSCOPIC YES
[2024-07-25 14:14] LABS: RBC,URINE 0-1 /HPF (0-1); WBC,URINE 0-1 /HPF (0-1)
[2024-07-25] MEDS ORDERED: ONDA-243 PO (14:30)
[2024-07-25 15:04] VITALS: BP 142/83; PULSE 89; RESP 20; O2SAT 99
== END 2024-07-25 15:03 | disposition home or self-care (01) ==
LOC: EDH 11:30
DX: E11.65 Type 2 diabetes mellitus with hyperglycemia (principal); K52.9 Noninfective gastroenteritis and colitis, unspecified; E86.0 Dehydration; R11.2 Nausea with vomiting, unspecified; E78.00 Pure hypercholesterolemia, unspecified; I10 Essential (primary) hypertension; Z79.84 Long term (current) use of oral hypoglycemic drugs; Z91.199 Patient's noncompliance with other medical treatment and regimen due to unspecified reason
CPT/HCPCS: 99283; 96374; 96361; 80053; 80305; 83690; 85025; 82948; 36415; 81001; 84132 ×2; J7030; J2765